=== PATIENT | female | born 1960 | race Caucasian/White ===

== ENCOUNTER 2018-07-30 05:34 | Day surgery (SDC) | payer BC ==
[2018-07-27 11:28] LABS: BILIRUBIN,URINE NEGATIVE (NEGATIVE); BLOOD, URINE NEGATIVE (NEGATIVE); CLARITY/URINE CLEAR (CLEAR); COLOR,URINE YELLOW (YELLOW); GLUCOSE,URINE NEGATIVE (NEGATIVE); KETONES,URINE NEGATIVE (NEGATIVE); LEUKOCYTE ESTERASE ,URINE TRACE (NEGATIVE); NITRITE, URINE NEGATIVE (NEGATIVE); PH,URINE 6.5 (5.0-8.0); PROTEIN URINE NEGATIVE (NEGATIVE); UROBILINOGEN,URINE 0.2 (0.2-1.0)
[2018-07-27 11:36] LABS: BACTERIA,URINE FEW /HPF (None Seen); MUCUS,URINE None Seen /LPF (None Seen); RBC,URINE 0-3 /HPF (0-3)
[2018-07-27 11:40] LABS: BASOPHILS % (AUTO) 0.7 % (0.0-2.0); EOSINOPHILS % (AUTO) 0.5 % (0.0-4.0); HEMATOCRIT 45.8 % (36-48); HEMOGLOBIN 14.7 g/dL (12.0-16.0); LYMPHOCYTES # (AUTO) 1.4 K/uL (1.0-5.5); MEAN CORPUSCULAR HEMOGLOBIN 30 pg (27-31); MEAN CORPUSCULAR HGB CONC 32 % (32-36); MEAN CORPUSCULAR VOLUME 93 fL (79.0-98.0); MONOCYTES # (AUTO) 0.4 K/uL (0.0-1.0); MONOCYTES % (AUTO) 5.8 % (1.7-9.3); PLATELET COUNT (AUTO) 212 K/uL (130-430); RED BLOOD CELL COUNT(AUTO) 4.94 MIL/uL (4.2-6.2); RED CELL DISTRIBUTION WIDTH 13.4 % (9.0-15.0); WHITE BLOOD COUNT (AUTO) 6.8 K/uL (4.8-10.8)
[2018-07-27 11:44] LABS: CALCIUM 10.2 mg/dL (8.4-11.0); CREATININE 0.59 mg/dL (0.55-1.30); POTASSIUM 4.1 mmol/L (3.5-5.1)
[~2018-07-30] VITALS: Ht 165.1 cm; Wt 80.7 kg
[2018-07-30] MEDS ORDERED: NS 1000 ML IV.SOLN IV ONE (07:45)
[2018-07-30] MEDS ORDERED: SEVOFLURANE 15 MIN GAS INH ONE (07:45)
[2018-07-30] MEDS ORDERED: KETOROLAC TROMETHAMINE 30 MG VIAL IVP ONE (07:45)
[2018-07-30] MEDS ORDERED: NS IRRIG SOLN 1000 ML IR ONE (07:45)
[2018-07-30] MEDS ORDERED: LR 1,000 ML IV.SOLN IV ONE (07:45)
[2018-07-30] MEDS ORDERED: ONDANSETRON HCL 4 MG/2 ML VIAL IVP ONE ×2 (07:45)
[2018-07-30] MEDS ORDERED: PROPOFOL 200MG/ 20ML VIAL (DIPRIVAN) IV ONE (07:45)
[2018-07-30] MEDS ORDERED: ROCURONIUM BROMIDE 10 MG/ML (ZEMURON) IV ONE (07:45)
[2018-07-30] MEDS ORDERED: MIDAZOLAM HCL 5 MG/5 ML VIAL IVP ONE (07:45)
[2018-07-30] MEDS ORDERED: LR 1,000 ML IV SCH (08:37)
[2018-07-30] MEDS ORDERED: METOCLOPRAMIDE HCL 10 MG/2 ML VIAL IVP PRN (08:45)
[2018-07-30] MEDS ORDERED: ONDANSETRON HCL 4 MG/2 ML VIAL IVP PRN (08:45)
[2018-07-30] MEDS ORDERED: MORPHINE 4 MG/ML INJ. SYRINGE IVP PRN ×3 (08:45)
[2018-07-30 09:25] VITALS: BP_SYST 126
== END 2018-07-30 10:45 | disposition home or self-care (01) ==
LOC: SDS 05:34
PROVIDERS: ATTEND Obstetrics & Gynecology
DX: N84.0 Polyp of corpus uteri (principal); F32.5 Major depressive disorder, single episode, in full remission; M06.9 Rheumatoid arthritis, unspecified; E55.9 Vitamin D deficiency, unspecified; Z98.890 Other specified postprocedural states; Z82.49 Family history of ischemic heart disease and other diseases of the circulatory system; Z80.6 Family history of leukemia; Z88.0 Allergy status to penicillin; Z68.30 Body mass index [BMI] 30.0-30.9, adult; Z79.899 Other long term (current) drug therapy; E66.9 Obesity, unspecified
CPT/HCPCS: 36415; 58558; 80048; 81000; 85025; 88305; J1885; J2250; J2270; J2405; J2704; J2765; J7030; J7120

== ENCOUNTER 2023-03-30 19:17 | Emergency (ER) | payer BC, OTHER ==
[~2023-03-30] VITALS: Ht 165.1 cm; Wt 88.5 kg
[2023-03-30 19:22] VITALS: BP_SYST 148
[2023-03-30] MEDS ORDERED: ONDANSETRON 4 MG ODT TAB PO ONE (19:45)
[2023-03-30] MEDS ORDERED: HYDC2.5% TP (21:40)
[2023-03-30 21:46] VITALS: BP_SYST 110
[2023-03-30] MEDS ORDERED: ONDA-8 TL (21:46)
== END 2023-03-30 21:46 | disposition home or self-care (01) ==
LOC: SED 19:17
DX: R21 Rash and other nonspecific skin eruption (principal); M79.651 Pain in right thigh; R11.2 Nausea with vomiting, unspecified; Z88.0 Allergy status to penicillin; Z79.899 Other long term (current) drug therapy
CPT/HCPCS: 99284; 93971; Q0162